=== PATIENT | female | born 1975 | race Hispanic/Latino ===

== ENCOUNTER 2018-11-12 07:05 | Inpatient (IN) | payer OTHER, BC ==
[2018-11-12 07:33] VITALS: BMI 30.2
[2018-11-12] MEDS ORDERED: ceFAZolin 2 GM in Sodium Chloride 0.9% 100 ML IVPB ONE (08:24)
[2018-11-12] MEDS: Lactated Ringer's 1,000 ML IV ONE ×2 (08:30→09:36)
[2018-11-12] MEDS ORDERED: Oxytocin 30 UNIT in NS 500 ml 30 UNITS/500 ML BAG IV ONE (08:39)
[2018-11-12 08:48] LABS: BASO % 0.4 % (0.0-2.0); EOS # 0.2 K/uL (0.0-0.7); EOS % 1.6 % (0.0-4.0); HEMOGLOBIN 11.4 g/dL (12.0-16.0); LYMPH # 1.4 K/uL (1.0-4.3); LYMPH % 14.1 % (20.0-40.0); MEAN CORPUSCULAR HEMOGLOBIN 31.8 pg (27.0-31.0); MEAN CORPUSCULAR HGB CONC 34.6 g/dL (33.0-37.0); MEAN PLATELET VOLUME 11.3 fl (7.2-11.7); MONO # 0.8 K/uL (0.0-0.8); MONO % 8.6 % (0.0-10.0); NEUT # 7.4 K/uL (1.8-7.0); NEUT % 75.3 % (50.0-75.0); NRBC % 0.1 % (0.0-0.0); RBC 3.6 Mil/uL (3.80-5.20); RED CELL DISTRIBUTION WIDTH 13.1 % (11.5-14.5); WHITE BLOOD COUNT 9.8 K/uL (4.8-10.8)
--- NOTE | 2018-11-12 09:54 | OBADHP ---
Datetime: 11/12/2018 08:45 IP Chief Complaint Other: Scheduled C-sections Admit Comment, IP Provider: HPI: Yakelin is a 43 year old at 38.1 who is here for a scheduled for breech presentation at less than 39 weeks due to polyhydramnios. Her last ELISE on 11/09 was 27.2cm. Patient reports good movement, no contractions, no LOF or vaginal bleeding. ANN: 11/25/18, dated by IVF Problems IVF conception AMA Polyhydramnios PMH Hypothyroid PSH Denies Medications PNV Synthroid Allergies NKDA Social Denies tobacco, alcohol or drug use during the PHYSICAL EXAM Vitals reviewed labs: O+, antibody negative, HIV/RPR nonreactive, GC/Chlamydia neg, GBS POSITIVE, Rubella nonimmune Bedside US: confirmed persistent breech presentation ASSESSMENT/PLAN: 43 year old at 38.1 here for primary nonelective due to breech pre sentation and polyhydramnios - Initiaite preop orders - Risks/benefits/alternatives discussed and appropriate consent obtained Plan discussed with attending, Dr. Beverly Padilla MD OB Fellow Addendum by Dr. Paul: I have evaluated the patient independently and I agree with the above Abdomen - PN: Normal Lungs - PN: Normal Heart - PN: Normal HEENT - PN: Normal General - PN: Normal Presentation-Admit: Breech FHR - Baseline A Provider: 130 Membranes, Provider: Intact Gestation - Est Wks by US: 38.1 Vital Signs Provider: Reviewed; Within Normal Limits NICHD Variability Prov Fetus A: Moderate 6-25bpm NICHD Accel Fetus A IP Provider: [id number] FHR Category Provider Fetus A: Category I NICHD Decel Fetus A IP Provider: None Dilatation, Provider: NA IP Adm Impression: Term, intrauterine IP Admit Plan: Admit to unit; Initiate Section protocol
[2018-11-12] MEDS ORDERED: Morphine 5 mg/10 ml preservative-free Inj(Duramorph) ONE (10:08)
[2018-11-12] MEDS ORDERED: Oxycodone/Acetaminophen 5/325 mg Tab PO PRN ×3 (11:20→15:30)
--- NOTE | 2018-11-12 11:24 | OBDS ---
DELIVERY PERSONNEL Delivery Doctor: Roslyn Paul MD Scrub Nurse: Tami Barber Director Regulatory Agency: Anayeli Dillard RN Anesthesiologist: Erin DYSON MATERNAL INFORMATION Delivery Anesthesia: Spinal Medications in Delivery: ancef and pitocin Maternal Complications: Other Other Maternal Complications: Breech, AMA, IVF, LGA and Poly Provider Comments: Surgeon: Dr. Paul Claims Adjuster: Dr. Padilla Pre-op Dx: AMA, IVF, Polyhydramnios, 38 wks, Ozzy breech Surgery: Primary LTCS Post-op: same Findings: Live female infant ozzy breech, 7lbs 8oz, 8/9, clear fluid, grossly nml tubes, ovaries, placenta, uterus EBL: 800mL Total input: 1400mL Anesthesia: Spinal by Dr. Khan UO: 400mL COmplications: none Condition: stable Pathology: cord blood LABOR SUMMARY EDC: 11/25/2018 00:00 No. Babies in Womb: 1 Attempted: No Labor Anesthesia: None LABOR INFORMATION Reason for Induction: Not Applicable Oxytocin: N/A Group B Beta Strep: Positive Steroids Given: None Reason Steroids Not Administered: Not Applicable MEMBRANES Membranes Rupture Method: Artificial BABY A INFORMATION Method of Delivery: Born in Route : No : N/A Forceps: N/A Vacuum Extraction: N/A Shoulder Dystocia : No PRESENTATION/POSITION BABY A Presentation: Breech INFANT INFORMATION BABY A Gestational Age at Delivery: 38.1 Gestational Status: Term Infant Outcome : Liveborn Condition : Stable IDENTIFICATION/MEDS BABY A ID Band Number: [id number] ID Band Location: Left Leg; Left Arm
[2018-11-12] MEDS ORDERED: Lactated Ringer's 1,000 ML IV SCH ×2 (11:30→15:30)
[2018-11-12] MEDS ORDERED: DiphenhydrAMINE 50 mg/ml Inj IVP PRN ×2 (12:04→15:30)
[2018-11-12] MEDS ORDERED: Simethicone 80 mg Chewtab PO SCH (16:00)
--- NOTE | 2018-11-12 16:01 | OP ---
PROCEDURE DATE: 11/12/2018 SURGEON: Chen Paul MD BAIT DIGGER: Dr. Lynsey Padilla. PREOPERATIVE DIAGNOSES: 1. Advanced maternal age. 2. In vitro fertilization . 3. Polyhydramnios. 4. 38-week. 5. Jasen breech presentation. POSTOPERATIVE DIAGNOSES: 1. Advanced maternal age. 2. In vitro fertilization . 3. Polyhydramnios. 4. 38-week. 5. Jasen breech presentation PROCEDURE: Primary low-transverse . FINDINGS: Live female infant, jasen breech presentation, 7 pounds 8 ounces, 8 and 9 Apgars. Clear fluid. Grossly normal tubes, ovaries, placenta, and uterus, three-vessel cord. TYPE OF ANESTHESIA: Spinal. ANESTHESIA ADMINISTERED BY: Scooby Khan MD ESTIMATED BLOOD LOSS: 800 mL. URINE OUTPUT: 400 mL. TOTAL FLUID INPUT: 1500 mL. COMPLICATIONS: None. CONDITION: Stable. PATHOLOGY SPECIMEN: Cord blood. INDICATION: This is a 43-year-old G3, P0-0-2-0 at 38 weeks and 1 day. The patient was advanced maternal age. Known IVF with donor egg. In the last few weeks, had increased fluid, evidence of polyhydramnios. Decision was advised by [facility] [place] to deliver the patient at 38 weeks. The patient was also known to have jasen breech presentation, so a was advised for delivery. The patient was advised the risks and benefits of surgery included bleeding, infection, and damage to surrounding organs such as gallbladder, ureter, and uterus. The patient verbalized understanding and signed informed consent. DESCRIPTION OF PROCEDURE: The patient was taken to the OR. Ancef was given preoperatively. Anesthesia placed bilaterally. The patient was prepped and draped in normal sterile fashion. Dorsal supine position with a leftward tilt. Pfannenstiel skin incision was made with a scalpel and carried through the underlying layer of fascia. With the scalpel and Bovie, the fascia was incised in the midline and extended laterally with the Fontenot scissors. Vishal clamps were used to tent up the inferior aspect of this incision, which was dissected off of the underlying rectus abdominis muscles with the Fontenot scissors. In a similar fashion, we dissected off the superior layer of the fascia off of the rectus abdominis muscles with the Fontenot scissors. The muscles were bluntly at the midline. The peritoneum was identified and entered bluntly. The incision was extended superiorly and inferiorly with good visualization of all underlying organs. Bladder blade was inserted. Vesicouterine peritoneum was identified with pickups and lower bladder flap was created with the Metzenbaum scissors. The uterus was entered with the scalpel. Uterine incision was extended manually. Infant was delivered in jasen breech presentation, followed by shoulders and rest of the infant atraumatically. Cord was clamped and cut. was handed off to awaiting pediatric team. Cord blood was obtained. The placenta was removed manually. Uterus was exteriorized, cleared of all clots. Uterine incision was repaired with an 0 Vicryl stitch. Small bleeders as part of the incision was repaired with 0 Monocryl stitch. Irrigation was used to clear out all the clots. The uterus was returned to the abdomen. Gutters were cleared of all clots. Again, the uterine incision was inspected and found to be hemostatic. Peritoneum was closed with 2-0 Monocryl and the muscles were reapproximated with same stitch. Again, all elements appeared to be hemostatic. The fascia was closed with 0 Vicryl stitch. Subcutaneous layers were reapproximated with plain gut suture. Skin was closed with 3-0 Monocryl. Sponge, lap, and needle counts were correct x4. The patient was taken to recovery room in stable condition with no other complication. Chen Paul MD
[2018-11-12] MEDS ORDERED: Promethazine 12.5 MG in Sodium Chloride 0.9% 50 ML IVPB ONE (16:08)
[2018-11-12] MEDS: Simethicone 80 mg Chewtab PO SCH ×2 (16:39→23:42)
[2018-11-13] MEDS: Simethicone 80 mg Chewtab PO SCH ×5 (06:33→23:56)
[2018-11-13 07:22] LABS: HEMOGLOBIN 10.1 g/dL (12.0-16.0); MEAN CELL VOLUME 92.7 fl (81.0-99.0); MEAN CORPUSCULAR HEMOGLOBIN 31.3 pg (27.0-31.0); MEAN CORPUSCULAR HGB CONC 33.8 g/dL (33.0-37.0); RBC 3.23 Mil/uL (3.80-5.20); WHITE BLOOD COUNT 13.5 K/uL (4.8-10.8)
[2018-11-13] MEDS: Oxycodone/Acetaminophen 5/325 mg Tab PO PRN ×2 (08:02→14:20)
[2018-11-13] MEDS ORDERED: Multivitamin With Minerals Tab PO SCH (09:00)
[2018-11-13] MEDS: Multivitamin With Minerals Tab PO SCH (09:32)
--- NOTE | 2018-11-13 10:42 | OBPPN ---
Datetime: 11/13/2018 10:31 PP Pain Prov: Within normal limits PP Nausea Prov: Denies PP Flatus Prov: No PP BM Prov: No PP Abdomen/Uterus Prov: Normal PP Lochia Prov: Normal PP C/S Incision Prov: Normal PP Progress Prov: Normal PP Comments Phys Exam Prov: Incision w/ bandage in place PP Impression Prov: Normal progression PP Plan Prov: Continue present management PP Progress Note Prov: POD 1 s/p primary section for jasen breech presentation, doing well, breast pumping Encourage ambulation Bandage to be removed today Vital Signs Provider PP: Reviewed
[2018-11-14] MEDS: Oxycodone/Acetaminophen 5/325 mg Tab PO PRN (05:12)
[2018-11-14] MEDS: Simethicone 80 mg Chewtab PO SCH ×4 (07:55→21:05)
[2018-11-14] MEDS: Multivitamin With Minerals Tab PO SCH (09:15)
--- NOTE | 2018-11-14 14:16 | OBPPN ---
Datetime: 11/14/2018 14:07 PP Pain Prov: Within normal limits PP Nausea Prov: Denies PP Flatus Prov: Yes PP Breasts Prov: Not Done PP Heart Prov: Normal PP Lungs Prov: Normal PP Abdomen/Uterus Prov: Normal PP Lochia Prov: Not Done PP Vulva/Perineum Prov: Not Done PP CVA Tenderness Prov: Normal PP Extremities Prov: Normal PP Impression Prov: Normal progression PP Plan Prov: Continue present management PP Progress Note Prov: Patient doing well ambulating tolerating diet pain well controlled Vital signs stable afebrile He is firm below the umbilicus Incision clean dry intact Extremities no Homans day #2 Ambulate, regular diet, anticipate discharge tomorrow Vital Signs Provider PP: Reviewed
[2018-11-15] MEDS: Simethicone 80 mg Chewtab PO SCH ×2 (03:57→09:09)
[2018-11-15] MEDS: Multivitamin With Minerals Tab PO SCH (08:45)
[2018-11-15] MEDS ORDERED: Measles, Mumps, and Rubella 0.5 ML VIAL SC ONE (08:51)
--- NOTE | 2018-11-15 08:56 | OBDCSUM ---
Datetime: 11/15/2018 08:50 Discharged to, Provider: Home Follow up at, Provider: OB Disch Instr Activity: Normal activity Disch Instr Diet: Regular Discharge Instructions, Provider: Routine instructions given Discharge Diagnosis, Provider: Term Delivered Discharge Time: 11/15/2018 08:50 Follow up in weeks, Provider: 1 wk/6 wks Disch Referrals: None Contraception discussed, Prov: Yes
--- NOTE | 2018-11-15 08:56 | OBPPN ---
Datetime: 11/15/2018 08:49 PP Pain Prov: Within normal limits PP Nausea Prov: Denies PP Flatus Prov: Yes PP Breasts Prov: Normal PP Heart Prov: Normal PP Lungs Prov: Normal PP Abdomen/Uterus Prov: Normal PP Lochia Prov: Normal PP Vulva/Perineum Prov: Normal PP CVA Tenderness Prov: Normal PP Extremities Prov: Normal PP Comments Phys Exam Prov: fundus firm under umbilicus Incision clean/dry/intact PP Impression Prov: Normal progression PP Plan Prov: Continue present management PP Progress Note Prov: Patient denies CP, no SOB, no N/V, tolerating Po diet, ambulating/voiding wel l, mild lochia, abdominal pain tolerable with meds, +flatus A/P POD #3 1. discharge pt 2. discharge instructions reviewed IP PP Procedures: None Vital Signs Provider PP: Reviewed; Within Normal Limits
[2018-11-15 21:31] VITALS: BP 99/65; PULSE 70; RESP 18; TEMP 98.3; O2SAT 99
== END 2018-11-15 13:16 | disposition home or self-care (01) | DRG 788 ==
LOC: H.EROB2 07:05 → H.L&D 07:48 → H.EROB2 08:23 → H.L&D 08:24 → H.OB/GYN 16:23
PROVIDERS: ADMIT Obstetrics & Gynecology; ATTEND Obstetrics & Gynecology
PROC: 10D00Z1 Extraction of Products of Conception, Low, Open Approach (ICD-10-PCS; principal; 2018-11-12)
PROC: 4A1HXCZ Monitoring of Products of Conception, Cardiac Rate, External Approach (ICD-10-PCS; 2018-11-12)
DX: O32.1XX0 Maternal care for breech presentation, not applicable or unspecified (principal); O40.3XX0 Polyhydramnios, third trimester, not applicable or unspecified; O99.824 Streptococcus B carrier state complicating childbirth; O99.284 Endocrine, nutritional and metabolic diseases complicating childbirth; E03.9 Hypothyroidism, unspecified; Z3A.38 38 weeks gestation of pregnancy; Z37.0 Single live birth; O09.813 Supervision of pregnancy resulting from assisted reproductive technology, third trimester; O09.523 Supervision of elderly multigravida, third trimester